=== PATIENT | female | born 2000 | race Caucasian/White ===

== ENCOUNTER 2019-11-12 19:44 | Emergency (ER) | payer OTHER ==
[~2019-11-12] VITALS: Ht 175.3 cm; Wt 78.0 kg
[2019-11-12] MEDS ORDERED: RESTORIL15 M1 (21:35)
[2019-11-12] MEDS ORDERED: DEPAKOTE ER250 MG (21:35)
[2019-11-12] MEDS ORDERED: ESTRADIOL2 MG (21:36)
[2019-11-12] MEDS ORDERED: ALDACTONE100 MG (21:37)
== END 2019-11-15 17:30 | disposition home or self-care (01) ==
LOC: ER 19:44
DX: Z20.828 Contact with and (suspected) exposure to other viral communicable diseases (principal); B20 Human immunodeficiency virus [HIV] disease; Z74.1 Need for assistance with personal care